=== PATIENT | male | born 1970 | race Two or more races ===

== ENCOUNTER 2023-01-17 06:42 | Inpatient (IN) | payer BC ==
[~2023-01-17] VITALS: Ht 165.1 cm; Wt 74.7 kg
[2023-01-17 07:50] LABS: Urine Bacteria NONE SEEN /hpf (None Seen); Urine Blood 1+ /uL (Negative); Urine Clarity Clear (Clear); Urine Color Yellow (Yellow); Urine Mucus FEW (None Seen); Urine Protein, UAD 1+ (Negative); Urine Specific Gravity 1.025 (1.001-1.035); Urine Urobilinogen Normal (Negative); Urine WBC 1 /hpf (0 - 3); Urine pH 5.5 (5.0-8.0)
[2023-01-17 08:00] LABS: Basophils # (auto) 0 10 ^3/uL (0-0.2); Eosinophils # (auto) 0 10 ^3/uL (0-0.8); Hematocrit 46.3 % (41.0-53.0); Hemoglobin 15.4 g/dL (13.5-17.5); Lymphocytes # (auto) 0.9 10 ^3/uL (0.4-5.4); Lymphocytes % (auto) 3.7 % (10.0-50.0); Mean Corpuscular Hemoglobin 29.4 pg (28.0-32.0); Mean Corpuscular Hgb Conc. 33.2 g/dL (32.0-36.0); Mean Corpuscular Volume 88.7 fL (80.0-100.0); Monocytes # (auto) 1.7 10 ^3/uL (0-1.3); Neutrophils # (auto) 22.1 10 ^3/uL (1.6-8.6); Neutrophils % (auto) 89.3 % (37.0-80.0); Red Blood Cells 5.22 10^6/uL (4.5-5.90); Red Cell Distribution Width 13.3 % (11.8-14.3); White Blood Cell 24.7 10^3/uL (4.4-10.8)
[2023-01-17 08:18] LABS: Alanine Aminotransferase 30 U/L (7-40); Albumin 4.8 g/dL (3.2-4.8); Alkaline Phosphatase 126 U/L (46-116); Amylase 37 U/L (30-118); Anion Gap 8 (5-15); Aspartate Aminotransferase 16 U/L (13-40); BUN/Creatinine Ratio 9.8 (10.0-20.0); Bilirubin, Total 0.6 mg/dL (0.2-1.0); Blood Urea Nitrogen 9 mg/dL (9-23); Calcium 9.7 mg/dL (8.5-10.1); Carbon Dioxide 25 mmol/L (20-30); Chloride 103 mmol/L (98-107); Glucose 125 mg/dL (74-106); Potassium 3.8 mmol/L (3.5-5.1); Sodium 136 mmol/L (136-145); Total Protein 7.5 g/dL (5.7-8.2)
[2023-01-17 08:49] LABS: Lipase 34 U/L (12-53); Magnesium 2.2 mg/dL (1.6-2.6)
[2023-01-17] MEDS ORDERED: cefTRIAXone 1GM/50ML D5W 50 ML IV ONE (10:00)
[2023-01-17] MEDS ORDERED: ACETAMINOPHEN 325 MG TAB PO PRN (10:30)
[2023-01-17] MEDS ORDERED: MORPHINE SULFATE INJ 2 MG/ml SYRG IV PRN ×2 (10:30)
[2023-01-17] MEDS ORDERED: ONDANSETRON HCL 4 MG/2 ML VIAL IV PRN (10:30)
[2023-01-17] MEDS ORDERED: NITROGLYCERIN 0.4 MG SL TAB SL PRN (10:30)
[2023-01-17] MEDS ORDERED: HYDROcodone-ACET 5/325MG TAB PO PRN (10:30)
[2023-01-17] MEDS ORDERED: hydrALAZINE HCL 20 MG/ML VL IV PRN (10:45)
[2023-01-17] MEDS ORDERED: SODIUM CHLORIDE 0.9% 1,000 ML IV ONE ×2 (10:45)
[2023-01-17] MEDS ORDERED: metroNIDAZOLE 500MG/100ML 100 ML IV ONE (11:00)
[2023-01-17 11:30] VITALS: PULSE 96; RESP 20; O2SAT 96
[2023-01-17 11:34] LABS: Triglycerides 96 mg/dL (< 150)
[2023-01-17 11:35] LABS: LDL Cholesterol 71 mg/dL (< 100)
[2023-01-17 11:36] LABS: Cholesterol 130 mg/dL (< 200); HDL Cholesterol 46 mg/dL (40-59)
[2023-01-17] MEDS: NICOTINE 14 MG/24HR TOPICAL PATCH TD SCH (11:49)
[2023-01-17 12:24] LABS: Amphetamine Screen, Urine Neg (NEGATIVE); Barbiturate Scree,Urine Neg (NEGATIVE); Benzodiazephine Screen, Urine Neg (NEGATIVE); Cocaine Screen, Urine Neg (NEGATIVE); Opiate Scree,Urine Neg (NEGATIVE); Phencyclidine Screen, Urine Neg (NEGATIVE)
[2023-01-17 12:25] LABS: Cannabinoid Screen, Urine Neg (NEGATIVE)
[2023-01-17] MEDS: SODIUM CHLORIDE 0.9% 1,000 ML IV SCH ×2 (12:43→21:30)
[2023-01-17] MEDS ORDERED: ERGOCALCIFEROL 50,000 UNIT(1.25MG) CAP PO SCH (14:45)
[2023-01-17 15:05] LABS: INR 1.17 (0.9-1.15); Prothrombin Time 12.2 sec (9.3-11.8)
[2023-01-17 17:18] VITALS: BP 112/63; PULSE 103; RESP 16; TEMP 98.1; O2SAT 94
[2023-01-17 20:00] VITALS: PULSE 88; RESP 18; O2SAT 96
[2023-01-17] MEDS ORDERED: CIPR500T4 PO (20:22)
[2023-01-17] MEDS ORDERED: MET500T PO (20:22)
[2023-01-17 21:49] VITALS: BP 112/70; PULSE 72; RESP 16; TEMP 98; O2SAT 94
[2023-01-17] MEDS: metroNIDAZOLE 500MG/100ML 100 ML IV SCH (22:09)
[2023-01-17] MEDS: CEFEPIME 2GM/50ML NS 50 ML IV SCH (22:09)
[2023-01-18] VITALS (7 sets, daily range): BP systolic 95–125; BP diastolic 47–78; PULSE 68–89; RESP 16–20; TEMP 97.6–98.5; O2SAT 92–96
[2023-01-18 06:13] LABS: Basophils # (auto) 0.1 10 ^3/uL (0-0.2); Basophils % (auto) 0.5 % (0.0-2.0); Eosinophils # (auto) 0.2 10 ^3/uL (0-0.8); Eosinophils % (auto) 1.7 % (0.0-7.0); Hematocrit 44.1 % (41.0-53.0); Hemoglobin 14.3 g/dL (13.5-17.5); Lymphocytes # (auto) 1.1 10 ^3/uL (0.4-5.4); Lymphocytes % (auto) 9.5 % (10.0-50.0); Mean Corpuscular Hgb Conc. 32.4 g/dL (32.0-36.0); Mean Corpuscular Volume 89.5 fL (80.0-100.0); Monocytes # (auto) 1.1 10 ^3/uL (0-1.3); Neutrophils # (auto) 8.8 10 ^3/uL (1.6-8.6); Neutrophils % (auto) 78.3 % (37.0-80.0); Red Blood Cells 4.93 10^6/uL (4.5-5.90); Red Cell Distribution Width 13.5 % (11.8-14.3); White Blood Cell 11.3 10^3/uL (4.4-10.8)
[2023-01-18 06:15] LABS: Anion Gap 6 (5-15); Carbon Dioxide 27 mmol/L (20-30); Chloride 107 mmol/L (98-107); Potassium 3.8 mmol/L (3.5-5.1); Sodium 140 mmol/L (136-145)
[2023-01-18 06:16] LABS: Calcium 8.7 mg/dL (8.7-10.4)
[2023-01-18 06:21] LABS: BUN/Creatinine Ratio 17.5 (10.0-20.0); Blood Urea Nitrogen 14 mg/dL (9-23); Glucose 101 mg/dL (74-106)
[2023-01-18] MEDS: CEFEPIME 2GM/50ML NS 50 ML IV SCH ×3 (06:36→22:16)
[2023-01-18] MEDS: metroNIDAZOLE 500MG/100ML 100 ML IV SCH ×3 (06:36→22:16)
[2023-01-18 08:06] LABS: PSA Free 0.17 ng/mL
[2023-01-18] MEDS ORDERED: levoFLOXacin 750MG 150 ML IV SCH (10:00)
[2023-01-18] MEDS: NICOTINE 14 MG/24HR TOPICAL PATCH TD SCH (10:33)
[2023-01-18] MEDS: SODIUM CHLORIDE 0.9% 1,000 ML IV SCH ×2 (10:43→17:30)
[2023-01-19] MEDS: SODIUM CHLORIDE 0.9% 1,000 ML IV SCH ×3 (03:30→23:30)
[2023-01-19 05:00] VITALS: BP 104/69; PULSE 77; RESP 20; TEMP 98; O2SAT 94
[2023-01-19] MEDS: metroNIDAZOLE 500MG/100ML 100 ML IV SCH ×3 (05:09→22:20)
[2023-01-19] MEDS: CEFEPIME 2GM/50ML NS 50 ML IV SCH ×3 (06:00→22:20)
[2023-01-19 06:15] LABS: Basophils # (auto) 0 10 ^3/uL (0-0.2); Basophils % (auto) 0.6 % (0.0-2.0); Eosinophils # (auto) 0.2 10 ^3/uL (0-0.8); Eosinophils % (auto) 2.6 % (0.0-7.0); Hemoglobin 14.5 g/dL (13.5-17.5); Lymphocytes # (auto) 1.3 10 ^3/uL (0.4-5.4); Lymphocytes % (auto) 15.7 % (10.0-50.0); Mean Corpuscular Hemoglobin 29.4 pg (28.0-32.0); Mean Corpuscular Hgb Conc. 32.9 g/dL (32.0-36.0); Mean Corpuscular Volume 89.5 fL (80.0-100.0); Monocytes # (auto) 0.8 10 ^3/uL (0-1.3); Monocytes % (auto) 9.1 % (0.0-12.0); Nucleated Red Blood Cells % 0.1 %; Red Blood Cells 4.92 10^6/uL (4.5-5.90); Red Cell Distribution Width 13.2 % (11.8-14.3); White Blood Cell 8.3 10^3/uL (4.4-10.8)
[2023-01-19 06:32] LABS: Alanine Aminotransferase 21 U/L (7-40); Alkaline Phosphatase 92 U/L (46-116); Anion Gap 6 (5-15); Aspartate Aminotransferase 11 U/L (13-40); BUN/Creatinine Ratio 13.6 (10.0-20.0); Blood Urea Nitrogen 11 mg/dL (9-23); Calcium 9.1 mg/dL (8.5-10.1); Carbon Dioxide 27 mmol/L (20-30); Chloride 109 mmol/L (98-107); Glucose 107 mg/dL (74-106); Potassium 4.6 mmol/L (3.5-5.1); Sodium 142 mmol/L (136-145)
[2023-01-19 06:33] LABS: Bilirubin, Total 0.3 mg/dL (0.2-1.0); Total Protein 6.3 g/dL (5.7-8.2)
[2023-01-19 08:00] VITALS: BP 108/59; PULSE 69; RESP 20; TEMP 97.6; O2SAT 93; O2SAT 96
[2023-01-19] MEDS: NICOTINE 14 MG/24HR TOPICAL PATCH TD SCH (10:15)
[2023-01-19 12:00] VITALS: BP 117/71; PULSE 74; RESP 20; TEMP 98.1; O2SAT 97
[2023-01-19 16:00] VITALS: BP 111/67; PULSE 75; RESP 20; TEMP 97.4; O2SAT 95
[2023-01-19 20:00] VITALS: BP 113/70; PULSE 79; RESP 22; TEMP 98.9
[2023-01-19 22:00] VITALS: BP 113/70; PULSE 79; RESP 22; TEMP 98.4; O2SAT 94
[2023-01-20] MEDS: metroNIDAZOLE 500MG/100ML 100 ML IV SCH ×2 (04:58→13:14)
[2023-01-20 05:00] VITALS: BP 131/67; PULSE 82; RESP 22; TEMP 97.8; O2SAT 94
[2023-01-20 05:53] LABS: Basophils # (auto) 0 10 ^3/uL (0-0.2); Basophils % (auto) 0.3 % (0.0-2.0); Eosinophils # (auto) 0.2 10 ^3/uL (0-0.8); Eosinophils % (auto) 2.2 % (0.0-7.0); Hematocrit 45.3 % (41.0-53.0); Hemoglobin 14.9 g/dL (13.5-17.5); Lymphocytes # (auto) 1.3 10 ^3/uL (0.4-5.4); Lymphocytes % (auto) 15.1 % (10.0-50.0); Mean Corpuscular Hemoglobin 29.3 pg (28.0-32.0); Mean Corpuscular Hgb Conc. 32.8 g/dL (32.0-36.0); Mean Corpuscular Volume 89.4 fL (80.0-100.0); Monocytes # (auto) 0.8 10 ^3/uL (0-1.3); Monocytes % (auto) 9.4 % (0.0-12.0); Neutrophils # (auto) 6.1 10 ^3/uL (1.6-8.6); Red Blood Cells 5.07 10^6/uL (4.5-5.90); Red Cell Distribution Width 13.3 % (11.8-14.3); White Blood Cell 8.3 10^3/uL (4.4-10.8)
[2023-01-20 06:02] LABS: Chloride 108 mmol/L (98-107); Potassium 3.9 mmol/L (3.5-5.1); Sodium 139 mmol/L (136-145)
[2023-01-20 06:03] LABS: Anion Gap 5 (5-15); Calcium 8.6 mg/dL (8.7-10.4); Carbon Dioxide 26 mmol/L (20-30)
[2023-01-20 06:09] LABS: BUN/Creatinine Ratio 10.8 (10.0-20.0); Blood Urea Nitrogen 9 mg/dL (9-23); Glucose 96 mg/dL (74-106)
[2023-01-20] MEDS: CEFEPIME 2GM/50ML NS 50 ML IV SCH ×2 (06:22→14:25)
[2023-01-20 08:43] VITALS: BP 110/69; PULSE 81; RESP 18; TEMP 97.6; O2SAT 95
[2023-01-20] MEDS: SODIUM CHLORIDE 0.9% 1,000 ML IV SCH (09:22)
[2023-01-20] MEDS: NICOTINE 14 MG/24HR TOPICAL PATCH TD SCH (09:23)
[2023-01-20] MEDS ORDERED: NICO14DI9 TD (10:53)
[2023-01-20] MEDS ORDERED: ERGO1CAP23 PO (10:53)
[2023-01-20 12:28] VITALS: BP 110/69; PULSE 81; RESP 18; TEMP 97.6; O2SAT 95
[2023-01-20 12:57] VITALS: BP 120/67; PULSE 78; RESP 18; TEMP 97.8; O2SAT 95
[2023-01-20 16:58] VITALS: BP 104/76; PULSE 83; RESP 19; TEMP 97.6; O2SAT 94
== END 2023-01-20 17:30 | disposition home health service (06) | DRG 872 ==
LOC: ER 06:42 → OVERFLOW 10:20 → EAST 15:43
PROVIDERS: ADMIT Internal Medicine; ATTEND Emergency Medicine
PROC: 05HB33Z Insertion of Infusion Device into Right Basilic Vein, Percutaneous Approach (ICD-10-PCS; principal; 2023-01-19)
PROC: B54MZZA Ultrasonography of Right Upper Extremity Veins, Guidance (ICD-10-PCS; 2023-01-19)
DX: A41.9 Sepsis, unspecified organism (principal); N39.0 Urinary tract infection, site not specified; K57.20 Diverticulitis of large intestine with perforation and abscess without bleeding; I10 Essential (primary) hypertension; F17.200 Nicotine dependence, unspecified, uncomplicated; E55.9 Vitamin D deficiency, unspecified
CPT/HCPCS: 36415; 74176; 80048; 80053; 80061; 80307; 81001; 82150; 82306; 82607; 83036; 83605; 83690; 83735; 84154; 84443; 84484; 85025; 85610; 85730; 87040; 87086; 93005; 96365; 96367; G0378; J0692; J3490

== ENCOUNTER 2023-01-30 12:09 | Emergency (ER) | payer BC ==
[~2023-01-30] VITALS: Ht 165.1 cm; Wt 76.3 kg
[~2023-01-30 12:09] MED LIST: ERGO1CAP23 PO; NICO14DI9 TD
[2023-01-30 18:50] VITALS: BP 131/83; PULSE 79; RESP 16; O2SAT 96
== END 2023-01-30 18:56 | disposition home or self-care (01) ==
LOC: ER 12:09
DX: Z45.2 Encounter for adjustment and management of vascular access device (principal)
CPT/HCPCS: 71045